=== PATIENT | female | born 1945 | race Caucasian/White ===

== ENCOUNTER → 2018-04-08 10:41 | Outpatient (CLI) | payer MEDICARE, OTHER, SELFPAY ==
--- NOTE | 2018-04-08 | DI.RAD.S_ITS ---
PROCEDURE: XR CHEST 2V INDICATIONS: COUGH, CHRONIC SINUSITITS, LEUKOCYSTOSIS TECHNIQUE: 2 views of the chest were acquired. COMPARISON: [facility], [facility], CHEST 2 VIEW, 08/14/2010, 11:57. FINDINGS: Surgical changes and devices: None. Lungs and pleura: No pleural effusions or pneumothorax. Lungs are clear. Mediastinum: Mediastinal contours are normal. Heart size is normal. Bones and chest wall: No suspicious bony abnormalities. Soft tissues appear unremarkable. IMPRESSION: Normal for age, source of current symptoms is not seen. A Dictated by: Sohna Maki M.D. on 04/08/2018 at 11:18 Approved by: Sohan Maki M.D. on 04/08/2018 at 11:18
--- NOTE | 2018-04-08 | DI.CT.S_ITS ---
PROCEDURE: CT SINUS SCREEN WO CON INDICATIONS: CHRONIC SINUSITIS TECHNIQUE: Noncontrast 3.0 mm axial images acquired from the frontal sinuses to the mid-sella, with coronal and sagittal reformats. For radiation dose reduction, the following was used: automated exposure control, adjustment of mA and/or kV according to patient size. COMPARISON: None. FINDINGS: Image quality: Excellent. Maxillary Sinuses: No bony remodeling or destruction. Sinuses are clear. Ethmoid Air Cells: No bony remodeling or destruction. Sinuses are clear. Sphenoid Sinuses: No bony remodeling or destruction. Sinuses are clear. Frontal Sinuses: No bony remodeling or destruction. Sinuses are clear. Ostiomeatal Complexes: Ostiomeatal complexes are patent. No Deepti cells. Miscellaneous: Visualized intra-orbital contents are normal. No july bullosa or paradoxical turbinate curvature. There is mild leftward nasal septal deviation. IMPRESSION: No significant active paranasal sinus disease can be seen. Mild leftward nasal septal deviation. Dictated by: Ramon Linares M.D. on 04/08/2018 at 10:59 Approved by: Ramon Linares M.D. on 04/08/2018 at 11:00
== END ==
PROVIDERS: Visit Provider Family Medicine
DX: J32.9 Chronic sinusitis, unspecified (principal); R51 Headache; J34.2 Deviated nasal septum; R05 Cough; D72.829 Elevated white blood cell count, unspecified
CPT/HCPCS: 70486; 71046

== ENCOUNTER → 2018-08-13 12:00 | Oncology outpatient (ONC) | payer MEDICARE, OTHER, SELFPAY ==
[2018-07-30 14:22] VITALS: BP 132/78; PULSE 74; RESP 18; TEMP 36.8; O2SAT 98
--- NOTE | 2018-07-30 14:45 | ONC.CONS ---
History of Present Illness - Data of Consult Consult date: 07/30/18 Primary Care Provider: Robin Shrestha - Consult Narrative Narrative: Diagnosis: Leukocytosis Previous treatment: None History of present illness: Digna Nickerson is a 72 year old female who is referred for further evaluation of a persistent leukocytosis. The patient was 1st notified of an elevated white count around Thanksgiving of last year. She tells me that her white count was about 14,000 at the time. Clinically, she was feeling well and had no specific complaints. On recheck, the white count had decreased to about 11,000 and has remained at that level over the last few months. Her most recent CBC was from June 18. Her white count was 11.38. Hemoglobin was 13.9 hematocrit 44 platelets [id number]. Differential showed 51% neutrophils and 40% lymphocytes. The absolute lymphocyte count was 4500. The patient denies any fevers chills or sweats. She did have an upper respiratory infection and took 2 days of antibiotics for it. She had a pneumonia about a year ago. She otherwise has been free of infections. She has not noticed any adenopathy. Her appetite and energy level have been stable. She has been trying to lose a little bit of weight. She does not have any history of enlargement of her spleen. Her past medical history is notable for diabetes. She has a history of hypertension and hyperlipidemia. She had a hysterectomy in her 20s. Her medications include insulin, aspirin, estradiol, lisinopril, metformin, simvastatin. Her family history is negative for any blood dyscrasias or malignancy. Social history: She lives on [facility] but previously lived in [place]. She used to work in a hardware store. She does not smoke or use alcohol. CC: Leonides Wren MD Home Medications and Allergies Home Medications Medication Instructions Recorded Confirmed Type ACETAMINOPHEN 650 mg PO PRN #0 08/29/11 History Disabled Parking Permit dev #1 02/22/16 Rx estradiol 1 mg PO QDAY #90 tab 05/14/16 Rx metformin [Glucophage] 500 mg PO Q DAY #90 tab 05/14/16 Rx simvastatin 20 mg PO HS #90 tab 05/14/16 Rx Glucose: Test Strips str QDAY #100 10/15/16 Rx aspirin 81 mg PO DAILY 07/30/18 07/30/18 History Allergies Allergy/AdvReac Type Severity Reaction Status Date / Time erythromycin base AdvReac Verified 07/30/18 14:21 Review of Systems - Patient Self-Reported Symptoms SR Constitution: Fatigue/Malaise SR respiratory issues: Cough SR Musculoskeletal issues: Cold hands or feet SR Neuro issues: Numbness or tingling Constitutional: normal exercise tolerance, no weight loss Gastrointestinal: no change in appetite, no abdominal pain Hematologic/Lymphatic: no enlarged lymph nodes Exam Vital signs: Vital Signs Temp Pulse Resp BP Pulse Ox 07/30/18 14:22 98.2 F 74 18 132/78 98 Intake and Output 07/29/18 07/30/18 07/30/18 23:59 07:59 15:59 Other: Weight 87 kg Patient Weight 07/30/18 23:59 Weight 87 kg - Constitutional positive no acute distress, positive average body habitus - Routine HEENT Exam Head: Present: normocephalic, atraumatic Eye: Present: EOMI, PERRL. Absent: conjunctival icterus, scleral injection ENT: Present: mucous membranes moist, oropharynx clear - Routine Neck Exam Present: supple. Absent: lymphadenopathy, thyromegaly - Routine Chest/Breast/Axilla Exam Axillae: Absent: lymphadenopathy - Routine Respiratory Exam Present: Clear to auscultation bilaterally. Absent: rales, wheezes - Routine Cardiovascular Exam Present: RRR, S1, S2. Absent: murmur - Routine Abdominal Exam Present: soft, normoactive bowel sounds. Absent: tenderness, organomegaly, mass - Routine Extremities Exam Absent: cyanosis, clubbing, edema - Routine Back/Spine Exam Back/Spine: Absent: paraspinal tenderness, vertebral tenderness - Routine Skin Exam Present: intact. Absent: petechiae, rash - Routine Neurological Exam Present: alert, oriented X3 - Routine Psychiatric Exam Present: normal affect, normal thought process Results - Imaging Additional studies: Procedures Arthroscopy, knee (08/30/11) Excision of semilunar cartilage of knee (08/30/11) Assessment and Plan (1) Leukocytosis Current visit: Yes Status: Acute 72-year-old woman with a mild leukocytosis. Her differential does not show any obvious neutrophilia. There are no myeloid precursors circulating. Her lymphocyte count is at the upper limit of normal but less than 5000. She has absolutely no symptoms related to her condition. 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 We will plan on checking a flow cytometry to confirm this. I doubt that this is CML. It is possible that may be reactive process although she otherwise does not have any obvious inflammatory condition. She will return to clinic in about 2 weeks for follow-up.
[2018-07-30 16:16] LABS: Add Manual Diff / Slide Review NO; Basophils Absolute Auto 100 /uL (0-100); Basophils Percent Auto 0.6 % (0-2); Eosinophils Absolute Auto 200 /uL (0-450); Eosinophils Percent Auto 1.9 % (2-4); Hematocrit 41.8 % (36-46); Hemoglobin 13.4 g/dL (12.0-16.0); Lymphocytes Absolute Auto 3600 /uL (1100-4500); Lymphocytes Percent Auto 32.7 % (25-40); Mean Corpuscular HGB Conc 32.1 % (30-36); Mean Corpuscular Volume 90.3 fL (80-100); Monocytes Absolute Auto 600 /uL (0-900); Monocytes Percent Auto 5.6 % (3-14); Neutrophils Absolute Auto 6600 /uL (1500-7000); Neutrophils Percent Auto 59.2 % (50-75); Platelet Count 378 X10^3/uL (150-400); Red Blood Cell Count 4.63 X10^6/uL (4.0-5.2); White Blood Cell Count 11.1 X10^3/uL (4.5-11.0)
[2018-08-13 12:12] VITALS: BP 127/74; PULSE 68; RESP 16; TEMP 36.6; O2SAT 96
--- NOTE | 2018-08-13 12:25 | ONC.PN ---
PN -Subjective Interval history: Diagnosis: Leukocytosis Previous treatment: None Interval history: The patient is a 72-year-old woman whose had a history of a mild elevation in her white count. She has otherwise been feeling quite well. Since her last visit here, she is without any specific complaint. She denies any fevers or chills. Her appetite and energy level have been stable. No unusual bleeding or bruising. No shortness of breath or cough. She has not noted any adenopathy. No GI complaints. Her medications are unchanged. They include aspirin estradiol metformin and simvastatin. - Patient Self-Reported Symptoms SR Constitution: Fatigue/Malaise SR respiratory issues: Cough SR Musculoskeletal issues: Cold hands or feet SR Neuro issues: Numbness or tingling Home Medications and Allergies Home Medications Medication Instructions Recorded Confirmed Type ACETAMINOPHEN 650 mg PO PRN #0 08/29/11 History Disabled Parking Permit dev #1 02/22/16 Rx estradiol 1 mg PO QDAY #90 tab 05/14/16 Rx metformin [Glucophage] 500 mg PO Q DAY #90 tab 05/14/16 Rx simvastatin 20 mg PO HS #90 tab 05/14/16 Rx Glucose: Test Strips str QDAY #100 10/15/16 Rx aspirin 81 mg PO DAILY 07/30/18 07/30/18 History Allergies Allergy/AdvReac Type Severity Reaction Status Date / Time erythromycin base AdvReac Verified 07/30/18 14:21 Exam Vital signs: Vital Signs Temp Pulse Resp BP Pulse Ox 08/13/18 12:12 97.9 F 68 16 127/74 96 Intake and Output 08/12/18 08/13/18 08/13/18 23:59 07:59 15:59 Other: Weight 86.3 kg Patient Weight 08/13/18 23:59 Weight 86.3 kg - Constitutional positive no acute distress, positive obese Comments: She is not further examined. Results - Labs Laboratory Last Values WBC 11.1 X10^3/uL (4.5-11.0) H 07/30/18 15:00 RBC 4.63 X10^6/uL (4.0-5.2) 07/30/18 15:00 Hgb 13.4 g/dL (12.0-16.0) 07/30/18 15:00 Hct 41.8 % (36-46) 07/30/18 15:00 MCV 90.3 fL (80-100) 07/30/18 15:00 MCH 29.0 PG (26-34) 07/30/18 15:00 MCHC 32.1 % (30-36) 07/30/18 15:00 RDW 13.0 % (11.6-14.8) 07/30/18 15:00 Plt Count 378 X10^3/uL (150-400) 07/30/18 15:00 Neut % (Auto) 59.2 % (50-75) 07/30/18 15:00 Lymph % (Auto) 32.7 % (25-40) 07/30/18 15:00 [place] % (Auto) 5.6 % (3-14) 07/30/18 15:00 Eos % (Auto) 1.9 % (2-4) L 07/30/18 15:00 Baso % (Auto) 0.6 % (0-2) 07/30/18 15:00 Neut # (Auto) 6600 /uL (9373-1089) 07/30/18 15:00 Lymph # (Auto) 3600 /uL (3014-1931) 07/30/18 15:00 [place] # (Auto) 600 /uL (0-900) 07/30/18 15:00 Eos # (Auto) 200 /uL (0-450) 07/30/18 15:00 Baso # (Auto) 100 /uL (0-100) 07/30/18 15:00 - Imaging Additional studies: Procedures Arthroscopy, knee (08/30/11) Excision of semilunar cartilage of knee (08/30/11) Assessment and Plan (1) Leukocytosis Current visit: Yes Status: Acute 72-year-old woman with a mild leukocytosis. Her most recent white count was only 11.1. Differential showed normal absolute numbers of all her white cells. Flow cytometry did not disclose any he monoclonal B-cell or T-cell population. There are no abnormalities in the myeloid cells identified. This is consistent with a benign reactive process. I do not think that any further evaluation is needed at this point. I recommended that she follow with her primary physician with CBC checked perhaps every 6-12 months. I have not scheduled a follow-up appointment for her here but would be happy to see her again should her counts worsen or if she were to develop any anemia or thrombocytopenia.
--- NOTE | 2018-08-13 12:28 | P.PNONC_ITS ---
PN -Subjective Interval history: Diagnosis: Leukocytosis Previous treatment: None Interval history: The patient is a 72-year-old woman whose had a history of a mild elevation in her white count. She has otherwise been feeling quite well. Since her last visit here, she is without any specific complaint. She denies any fevers or chills. Her appetite and energy level have been stable. No unusual bleeding or bruising. No shortness of breath or cough. She has not noted any adenopathy. No GI complaints. Her medications are unchanged. They include aspirin estradiol metformin and simvastatin. - Patient Self-Reported Symptoms SR Constitution: Fatigue/Malaise SR respiratory issues: Cough SR Musculoskeletal issues: Cold hands or feet SR Neuro issues: Numbness or tingling Home Medications and Allergies Home Medications Medication Instructions Recorded Confirmed Type ACETAMINOPHEN 650 mg PO PRN #0 08/29/11 History Disabled Parking Permit dev #1 02/22/16 Rx estradiol 1 mg PO QDAY #90 tab 05/14/16 Rx metformin [Glucophage] 500 mg PO Q DAY #90 tab 05/14/16 Rx simvastatin 20 mg PO HS #90 tab 05/14/16 Rx Glucose: Test Strips str QDAY #100 10/15/16 Rx aspirin 81 mg PO DAILY 07/30/18 07/30/18 History Allergies Allergy/AdvReac Type Severity Reaction Status Date / Time erythromycin base AdvReac Verified 07/30/18 14:21 Exam Vital signs: Vital Signs Temp Pulse Resp BP Pulse Ox 08/13/18 12:12 97.9 F 68 16 127/74 96 Intake and Output 08/12/18 08/13/18 08/13/18 23:59 07:59 15:59 Other: Weight 86.3 kg Patient Weight 08/13/18 23:59 Weight 86.3 kg - Constitutional positive no acute distress, positive obese Comments: She is not further examined. Results - Labs Laboratory Last Values WBC 11.1 X10^3/uL (4.5-11.0) H 07/30/18 15:00 RBC 4.63 X10^6/uL (4.0-5.2) 07/30/18 15:00 Hgb 13.4 g/dL (12.0-16.0) 07/30/18 15:00 Hct 41.8 % (36-46) 07/30/18 15:00 MCV 90.3 fL (80-100) 07/30/18 15:00 MCH 29.0 PG (26-34) 07/30/18 15:00 MCHC 32.1 % (30-36) 07/30/18 15:00 RDW 13.0 % (11.6-14.8) 07/30/18 15:00 Plt Count 378 X10^3/uL (150-400) 07/30/18 15:00 Neut % (Auto) 59.2 % (50-75) 07/30/18 15:00 Lymph % (Auto) 32.7 % (25-40) 07/30/18 15:00 [place] % (Auto) 5.6 % (3-14) 07/30/18 15:00 Eos % (Auto) 1.9 % (2-4) L 07/30/18 15:00 Baso % (Auto) 0.6 % (0-2) 07/30/18 15:00 Neut # (Auto) 6600 /uL (1509-5360) 07/30/18 15:00 Lymph # (Auto) 3600 /uL (7275-5693) 07/30/18 15:00 [place] # (Auto) 600 /uL (0-900) 07/30/18 15:00 Eos # (Auto) 200 /uL (0-450) 07/30/18 15:00 Baso # (Auto) 100 /uL (0-100) 07/30/18 15:00 - Imaging Additional studies: Procedures Arthroscopy, knee (08/30/11) Excision of semilunar cartilage of knee (08/30/11) Assessment and Plan (1) Leukocytosis Current visit: Yes Status: Acute 72-year-old woman with a mild leukocytosis. Her most recent white count was only 11.1. Differential showed normal absolute numbers of all her white cells. Flow cytometry did not disclose any he monoclonal B-cell or T-cell population. There are no abnormalities in the myeloid cells identified. This is consistent with a benign reactive process. I do not think that any further evaluation is needed at this point. I recommended that she follow with her primary physician with CBC checked perhaps every 6-12 months. I have not scheduled a follow-up appointment for her here but would be happy to see her again should her counts worsen or if she were to develop any anemia or thrombocytopenia.
--- NOTE | 2018-08-14 08:51 | ONC.SCHED ---
Scheduling: per Dr Wren no follow ups scheduled.
== END ==
PROVIDERS: PCP Family Medicine
DX: D72.829 Elevated white blood cell count, unspecified (principal)
CPT/HCPCS: 36415; 85025; 99204; 99213; 99214